=== PATIENT | female | born 1985 | race American Indian/Alaskan Native ===

== ENCOUNTER 2016-10-30 07:23 | Emergency (ER) | payer MEDICAID ==
[2016-10-30 07:36] VITALS: BP 130/97
[2016-10-30 08:13] LABS: Bilirubin,Urine NEG (Negative); Blood,Urine LG (Negative); Ketones,Urine 80 mg/dL (Negative); Leukocyte Esterase,Urine NEG (Negative); Mucus,Urine FEW /HPF; Nitrite,Urine NEG (Negative)
[2016-10-30 08:18] LABS: Basophils % (Auto) 0.9 % (0.0-1.8); Eosinophils % (Auto) 0.2 % (0.0-4.3); Hematocrit 38.1 % (30.3-42.9); Hemoglobin 12.5 gm/dl (10.1-14.3); Mean Corpuscular HGB Conc 33 % (30-34); Mean Corpuscular Hemoglobin 30 pg (28-32); Mean Corpuscular Volume 92 fl (79-97); Platelet Count 290 K/mm3 (140-440); Red Blood Count 4.16 M/mm3 (3.65-5.03); Red Cell Distribution Width 14.3 % (13.2-15.2); White Blood Count 10.8 K/mm3 (4.5-11.0)
[2016-10-30 08:43] LABS: Alanine Aminotransferase 10 units/L (7-56); Albumin 4.7 g/dL (3.9-5); Albumin/Globulin Ratio 1.6 %; Alkaline Phosphatase 73 units/L (35-129); Anion Gap 23 mmol/L; BUN/Creatinine Ratio 15.71; Bilirubin,Total 0.7 mg/dL (0.1-1.2); Blood Urea Nitrogen 11 mg/dL (7-17); Calcium 9.6 mg/dL (8.4-10.2); Carbon Dioxide 18 mmol/L (22-30); Chloride 99.1 mmol/L (98-107); Creatine Kinase 746 units/L (30-135); Glucose 100 mg/dL (65-100); Potassium 4.1 mmol/L (3.6-5.0); Sodium 136 mmol/L (137-145); Total Protein 7.7 g/dL (6.3-8.2)
[2016-10-30 08:47] LABS: Bilirubin,Direct < 0.2 mg/dL (0-0.2)
== END 2016-10-30 08:15 | disposition left against medical advice (07) ==
LOC: ED 07:23
DX: R06.00 Dyspnea, unspecified (principal); Z53.21 Procedure and treatment not carried out due to patient leaving prior to being seen by health care provider
CPT/HCPCS: 36415; 80048; 80074; 81001; 82550; 84484; 84703; 85025; 93005; 93010

== ENCOUNTER 2017-05-16 04:23 | Emergency (ER) | payer MEDICAID ==
[2017-05-16] MEDS ORDERED: ZOFRAN ONE (04:47)
[2017-05-16] MEDS ORDERED: NACL 0.9% 1000 ML 1,000 ML ONE (04:48)
[2017-05-16] MEDS ORDERED: TORADOL ONE (04:48)
[2017-05-16] MEDS ORDERED: ZOFRAN IV ONE (05:12)
[2017-05-16] MEDS ORDERED: NACL 0.9% 1000 ML 1,000 ML IV ONE (05:12)
[2017-05-16] MEDS ORDERED: TORADOL IV ONE (05:14)
[2017-05-16 06:47] LABS: Hematocrit 37.9 % (30.3-42.9); Hemoglobin 12.4 gm/dl (10.1-14.3); Mean Corpuscular HGB Conc 33 % (30-34); Mean Corpuscular Hemoglobin 30 pg (28-32); Mean Corpuscular Volume 92 fl (79-97); Platelet Count 295 K/mm3 (140-440); Red Cell Distribution Width 14.3 % (13.2-15.2); White Blood Count 12.5 K/mm3 (4.5-11.0)
[2017-05-16 07:02] LABS: Albumin 4.1 g/dL (3.9-5); Albumin/Globulin Ratio 1.4 %; Alkaline Phosphatase 63 units/L (35-129); BUN/Creatinine Ratio 32; Blood Urea Nitrogen 19 mg/dL (7-17); Carbon Dioxide 21 mmol/L (22-30); Chloride 105.6 mmol/L (98-107); Glucose 74 mg/dL (65-100); Lipase 25 units/L (13-60); Sodium 143 mmol/L (137-145); Total Protein 7.1 g/dL (6.3-8.2)
[2017-05-16] MEDS ORDERED: NORCO 10/325 PO ONE (07:02)
[2017-05-16 07:07] LABS: Bacteria,Urine 1+ /HPF (Negative); Bilirubin,Urine NEG (Negative); Blood,Urine LG (Negative); Ketones,Urine NEG (Negative); Leukocyte Esterase,Urine SM (Negative); Mucus,Urine 3+ /HPF; Nitrite,Urine NEG (Negative)
[2017-05-16 07:39] LABS: Basophils % (Manual) 0 % (0.0-1.8); Blastocytes % (Manual) 0 %; Diff Status Complete; Eosinophils % (Manual) 0 % (0.0-4.3); RBC Morphology Normal
[2017-05-16 07:54] LABS: Anion Gap 21 mmol/L
[2017-05-16 07:55] LABS: Alanine Aminotransferase 8 units/L (7-56); Potassium 4.3 mmol/L (3.6-5.0)
[2017-05-16 08:11] VITALS: BP 120/71
--- NOTE | 2017-05-16 08:27 | Emergency Department Report ---
ED General Adult HPI - General Chief complaint: Urogenital-Female Stated complaint: FLANK PAIN Time Seen by Provider: 05/16/17 07:01 Source: patient Mode of arrival: Ambulatory Limitations: No Limitations - History of Present Illness Initial comments: Patient is a 32-year-old female past medical history of renal colic who presents with left flank pain. Patient states that left flank pain that has been going on for the last couple hours. Patient is nauseated and vomiting. States that the pain is an 8 out of 10 and radiates down her groin is a crampy type of pain. Patient has no blood or bile in her vomit. Nothing makes the pain better or worse. Patient denies having any dysuria or having any vaginal bleeding. Severity scale (0 -10): 0 - Related Data Previous Rx's Medication Instructions Recorded Last Taken Type HYDROcodone/APAP 7.5-325 [[place] 1 each PO Q6HR PRN #13 tablet 05/16/17 Unknown Rx 7.5/325] HYDROcodone/APAP 7.5-325 [[place] 1 each PO Q6HR PRN #13 tablet 05/16/17 Unknown Rx 7.5/325] Naproxen 250 mg PO BID #20 tablet 05/16/17 Unknown Rx Nitrofurantoin Monohyd/M-Cryst 100 mg PO BID #14 capsule 05/16/17 Unknown Rx [Macrobid 100 mg Capsule] Ondansetron [Zofran TAB] 4 mg PO Q8HR PRN #13 tablet 05/16/17 Unknown Rx Allergies Allergy/AdvReac Type Severity Reaction Status Date / Time No Known Allergies Allergy Verified 10/30/16 07:30 ED Review of Systems ROS: Stated complaint: FLANK PAIN Other details as noted in HPI Constitutional: denies: chills, fever Eyes: denies: eye pain, eye discharge, vision change ENT: denies: ear pain, throat pain Respiratory: denies: cough, shortness of breath, wheezing Cardiovascular: denies: chest pain, palpitations Endocrine: no symptoms reported Gastrointestinal: as per HPI, nausea, other (flank pain ). denies: abdominal pain, diarrhea Genitourinary: denies: urgency, dysuria, discharge Musculoskeletal: denies: back pain, joint swelling, arthralgia Skin: denies: rash, lesions Neurological: denies: headache, weakness, paresthesias Psychiatric: denies: anxiety, depression Hematological/Lymphatic: denies: easy bleeding, easy bruising ED Past Medical Hx - Past Medical History Previous Medical History?: Yes Hx Hypertension: No Hx Heart Attack/AMI: No Hx Congestive Heart Failure: No Hx Diabetes: No Hx Deep Vein Thrombosis: No Hx Renal Disease: Yes (kidney stones) Hx Sickle Cell Disease: No Hx Seizures: No Hx Kidney Stones: Yes Hx Asthma: No Hx COPD: No Hx HIV: No - Surgical History Past Surgical History?: Yes Additional Surgical History: TUBAL LIGATION. LEFT KIDNEY STENT - Social History Smoking Status: Never Smoker Substance Use Type: None - Medications Home Medications: Home Medications Medication Instructions Recorded Confirmed Last Taken Type HYDROcodone/APAP 7.5-325 [[place] 1 each PO Q6HR PRN #13 tablet 05/16/17 Unknown Rx 7.5/325] HYDROcodone/APAP 7.5-325 [[place] 1 each PO Q6HR PRN #13 tablet 05/16/17 Unknown Rx 7.5/325] Naproxen 250 mg PO BID #20 tablet 05/16/17 Unknown Rx Nitrofurantoin Monohyd/M-Cryst 100 mg PO BID #14 capsule 05/16/17 Unknown Rx [Macrobid 100 mg Capsule] Ondansetron [Zofran TAB] 4 mg PO Q8HR PRN #13 tablet 05/16/17 Unknown Rx ED Physical Exam - General Limitations: No Limitations General appearance: alert, in no apparent distress - Head Head exam: Present: atraumatic, normocephalic - Eye Eye exam: Present: normal appearance - ENT ENT exam: Present: mucous membranes moist - Neck Neck exam: Present: normal inspection - Respiratory Respiratory exam: Present: normal lung sounds bilaterally. Absent: respiratory distress - Cardiovascular Cardiovascular Exam: Present: regular rate, normal rhythm. Absent: systolic murmur, diastolic murmur, rubs, gallop - GI/Abdominal GI/Abdominal exam: Present: soft, normal bowel sounds - Extremities Exam Extremities exam: Present: normal inspection - Back Exam Back exam: Present: CVA tenderness (L) - Neurological Exam Neurological exam: Present: alert, oriented X3 - Psychiatric Psychiatric exam: Present: normal affect, normal mood - Skin Skin exam: Present: warm, dry, intact, normal color. Absent: rash ED Course Vital Signs 05/16/17 05/16/17 05/16/17 04:28 04:29 04:37 Temperature 97.8 F 97.8 F 98.0 F Pulse Rate 88 88 85 Respiratory 18 20 18 Rate Blood Pressure 112/80 112/80 142/87 Blood Pressure [Left] O2 Sat by Pulse 100 99 96 Oximetry 05/16/17 05/16/17 05/16/17 05:00 05:11 05:15 Temperature 97.8 F Pulse Rate 90 Respiratory 20 20 20 Rate Blood Pressure Blood Pressure 126/84 [Left] O2 Sat by Pulse 98 98 Oximetry 05/16/17 05/16/17 05/16/17 05:45 07:22 08:10 Temperature 98.2 F Pulse Rate 74 Respiratory 20 20 18 Rate Blood Pressure Blood Pressure 120/71 [Left] O2 Sat by Pulse 98 Oximetry ED Medical Decision Making - Lab Data Result diagrams: 05/16/17 06:36 05/16/17 06:36 Lab Results 05/16/17 05/16/17 05/16/17 Range/Units 06:36 06:36 06:36 WBC 12.5 H (4.5-11.0) K/mm3 RBC 4.10 (3.65-5.03) M/mm3 Hgb 12.4 (10.1-14.3) gm/dl Hct 37.9 (30.3-42.9) % MCV 92 (79-97) fl MCH 30 (28-32) pg MCHC 33 (30-34) % RDW 14.3 (13.2-15.2) % Plt Count 295 (140-440) K/mm3 Add Manual Diff Complete Total Counted 100 Seg Neutrophils % [employer] Seg Neuts % (Manual) 95.0 H (40.0-70.0) % Band Neutrophils % 0 % Lymphocytes % (Manual) 4.0 L (13.4-35.0) % Reactive Lymphs % (Man) 0 % Monocytes % (Manual) 1.0 (0.0-7.3) % Eosinophils % (Manual) 0 (0.0-4.3) % Basophils % (Manual) 0 (0.0-1.8) % Metamyelocytes % 0 % Myelocytes % 0 % Promyelocytes % 0 % Blast Cells % 0 % Nucleated RBC % Not Reportable Seg Neutrophils # Man 11.9 H (1.8-7.7) K/mm3 Band Neutrophils # 0.0 K/mm3 Lymphocytes # (Manual) 0.5 L (1.2-5.4) K/mm3 Abs React Lymphs (Man) 0.0 K/mm3 Monocytes # (Manual) 0.1 (0.0-0.8) K/mm3 Eosinophils # (Manual) 0.0 (0.0-0.4) K/mm3 Basophils # (Manual) 0.0 (0.0-0.1) K/mm3 Metamyelocytes # 0.0 K/mm3 Myelocytes # 0.0 K/mm3 Promyelocytes # 0.0 K/mm3 Blast Cells # 0.0 K/mm3 WBC Morphology Not Reportable Hypersegmented Neuts Not Reportable Hyposegmented Neuts Not Reportable Hypogranular Neuts Not Reportable Smudge Cells Not Reportable Toxic Granulation Not Reportable Toxic Vacuolation Not Reportable Dohle Bodies Not Reportable Pelger-Huet Anomaly Not Reportable Emmy Rods Not Reportable Platelet Estimate Appears normal Clumped Platelets Not Reportable Plt Clumps, EDTA Not Reportable Large Platelets Not Reportable Giant Platelets Not Reportable Platelet Satelliting Not Reportable Plt Morphology Comment Not Reportable RBC Morphology Normal Dimorphic RBCs Not Reportable Polychromasia Not Reportable Hypochromasia Not Reportable Poikilocytosis Not Reportable Anisocytosis Not Reportable Microcytosis Not Reportable Macrocytosis Not Reportable Spherocytes Not Reportable Pappenheimer Bodies Not Reportable Sickle Cells Not Reportable Target Cells Not Reportable Tear Drop Cells Not Reportable Ovalocytes Not Reportable Helmet Cells Not Reportable [place] Bodies Not Reportable [place] Rings Not Reportable Tye Cells Not Reportable Bite Cells Not Reportable Crenated Cell Not Reportable Elliptocytes Not Reportable Acanthocytes (Spur) Not Reportable Rouleaux Not Reportable Hemoglobin C Crystals Not Reportable Schistocytes Not Reportable Malaria parasites Not Reportable Se Bodies Not Reportable Hem Pathologist Commnt No Sodium 143 (137-145) mmol/L Potassium 4.3 (3.6-5.0) mmol/L Chloride 105.6 (98-107) mmol/L Carbon Dioxide 21 L (22-30) mmol/L Anion Gap 21 mmol/L BUN 19 H (7-17) mg/dL Creatinine 0.6 L (0.7-1.2) mg/dL Estimated GFR > 60 ml/min BUN/Creatinine Ratio 32 % Glucose 74 (65-100) mg/dL Calcium 9.0 (8.4-10.2) mg/dL Total Bilirubin 0.40 (0.1-1.2) mg/dL AST 17 (5-40) units/L ALT 8 (7-56) units/L Alkaline Phosphatase 63 (35-129) units/L Total Protein 7.1 (6.3-8.2) g/dL Albumin 4.1 (3.9-5) g/dL Albumin/Globulin Ratio 1.4 % Lipase 25 (13-60) units/L HCG, Qual Negative (Negative) Urine Color (Yellow) Urine Turbidity (Clear) Urine pH (5.0-7.0) Ur Specific [place] (1.003-1.030) Urine Protein (Negative) mg/dL Urine Glucose (UA) (Negative) mg/dL Urine Ketones (Negative) mg/dL Urine Blood (Negative) Urine Nitrite (Negative) Urine Bilirubin (Negative) Urine Urobilinogen (<2.0) mg/dL Ur Leukocyte Esterase (Negative) Urine WBC (Auto) (0.0-6.0) /HPF Urine RBC (Auto) (0.0-6.0) /HPF U Epithel Cells (Auto) (0-13.0) /HPF Urine Bacteria (Auto) (Negative) /HPF Calcium Oxalate Crystal Urine Mucus /HPF 05/16/17 Range/Units 06:51 WBC (4.5-11.0) K/mm3 RBC (3.65-5.03) M/mm3 Hgb (10.1-14.3) gm/dl Hct (30.3-42.9) % MCV (79-97) fl MCH (28-32) pg MCHC (30-34) % RDW (13.2-15.2) % Plt Count (140-440) K/mm3 Add Manual Diff Total Counted Seg Neutrophils % Seg Neuts % (Manual) (40.0-70.0) % Band Neutrophils % % Lymphocytes % (Manual) (13.4-35.0) % Reactive Lymphs % (Man) % Monocytes % (Manual) (0.0-7.3) % Eosinophils % (Manual) (0.0-4.3) % Basophils % (Manual) (0.0-1.8) % Metamyelocytes % % Myelocytes % % Promyelocytes % % Blast Cells % % Nucleated RBC % Seg Neutrophils # Man (1.8-7.7) K/mm3 Band Neutrophils # K/mm3 Lymphocytes # (Manual) (1.2-5.4) K/mm3 Abs React Lymphs (Man) K/mm3 Monocytes # (Manual) (0.0-0.8) K/mm3 Eosinophils # (Manual) (0.0-0.4) K/mm3 Basophils # (Manual) (0.0-0.1) K/mm3 Metamyelocytes # K/mm3 Myelocytes # K/mm3 Promyelocytes # K/mm3 Blast Cells # K/mm3 WBC Morphology Hypersegmented Neuts Hyposegmented Neuts Hypogranular Neuts Smudge Cells Toxic Granulation Toxic Vacuolation Dohle Bodies Pelger-Huet Anomaly Emmy Rods Platelet Estimate Clumped Platelets Plt Clumps, EDTA Large Platelets Giant Platelets Platelet Satelliting Plt Morphology Comment RBC Morphology Dimorphic RBCs Polychromasia Hypochromasia Poikilocytosis Anisocytosis Microcytosis Macrocytosis Spherocytes Pappenheimer Bodies Sickle Cells Target Cells Tear Drop Cells Ovalocytes Helmet Cells [place] Bodies [place] Rings Tye Cells Bite Cells Crenated Cell Elliptocytes Acanthocytes (Spur) Rouleaux Hemoglobin C Crystals Schistocytes Malaria parasites Se Bodies Hem Pathologist Commnt Sodium (137-145) mmol/L Potassium (3.6-5.0) mmol/L Chloride (98-107) mmol/L Carbon Dioxide (22-30) mmol/L Anion Gap mmol/L BUN (7-17) mg/dL Creatinine (0.7-1.2) mg/dL Estimated GFR ml/min BUN/Creatinine Ratio % Glucose (65-100) mg/dL Calcium (8.4-10.2) mg/dL Total Bilirubin (0.1-1.2) mg/dL AST (5-40) units/L ALT (7-56) units/L Alkaline Phosphatase (35-129) units/L Total Protein (6.3-8.2) g/dL Albumin (3.9-5) g/dL Albumin/Globulin Ratio % Lipase (13-60) units/L HCG, Qual (Negative) Urine Color Yellow (Yellow) Urine Turbidity Clear (Clear) Urine pH 5.0 (5.0-7.0) Ur Specific [place] 1.021 (1.003-1.030) Urine Protein 100 mg/dl (Negative) mg/dL Urine Glucose (UA) Neg (Negative) mg/dL Urine Ketones Neg (Negative) mg/dL Urine Blood Lg (Negative) Urine Nitrite Neg (Negative) Urine Bilirubin Neg (Negative) Urine Urobilinogen 2.0 (<2.0) mg/dL Ur Leukocyte Esterase Sm (Negative) Urine WBC (Auto) 19.0 H (0.0-6.0) /HPF Urine RBC (Auto) 99.0 (0.0-6.0) /HPF U Epithel Cells (Auto) 1.0 (0-13.0) /HPF Urine Bacteria (Auto) 1+ (Negative) /HPF Calcium Oxalate Crystal 1+ Urine Mucus 3+ /HPF - Radiology Data Radiology results: report reviewed, image reviewed CT scan abdomen without contrast: Shows 7 x 6 x 6 mm stone mild obstructing. Similar findings in 2015 - Medical Decision Making Chief medical diagnosis: Nephrolithiasis Differential medical diagnosis: Cystitis, pyelonephritis CBC, CMP, urinalysis, IV pain medication, IV antiemetics, IV fluids, CT scan of abdomen Patient has nephrolithiasis 7 x 6 x 6 mm stone. Patient will go home she is able tolerate by mouth and does not need IV pain medication control her pain. All have patient follow up with urologist as an outpatient. Also patient was Zofran, naproxen, hydrocodone and Macrobid for her UTI. Discussed plan with patient she agrees with plan. Critical care attestation.: If time is entered above; I have spent that time in minutes in the direct care of this critically ill patient, excluding procedure time. ED Disposition Clinical Impression: Left flank pain, Kidney stone UTI (urinary tract infection) Qualifiers: Urinary tract infection type: acute cystitis Hematuria presence: with hematuria Qualified Code(s): N30.01 - Acute cystitis with hematuria Disposition: TO HOME OR SELFCARE Is pt being admited?: No Does the pt Need Aspirin: No Condition: Stable Instructions: Kidney Stones (ED), Renal Colic (ED) Prescriptions: HYDROcodone/APAP 7.5-325 [[place] 7.5/325] 1 each PO Q6HR PRN #13 tablet PRN Reason: Pain HYDROcodone/APAP 7.5-325 [[place] 7.5/325] 1 each PO Q6HR PRN #13 tablet PRN Reason: Pain Naproxen 250 mg PO BID #20 tablet Nitrofurantoin Monohyd/M-Cryst [Macrobid 100 mg Capsule] 100 mg PO BID #14 capsule Ondansetron [Zofran TAB] 4 mg PO Q8HR PRN #13 tablet PRN Reason: Nausea Referrals: JENNIFER HOOD MD [Staff Physician] - 3-5 Days
--- NOTE | 2017-05-16 09:05 | Cat Scan Report ---
CT ABDOMEN WITHOUT CONTRAST History: Left flank pain, history of kidney stones. Technique: Helical CT with sagittal and coronal reformatted images. Findings: A 6 x 6 x 7 mm calculus is identified in the proximal left ureter. There is moderate upstream left hydronephrosis. No additional ureteral stones. There are multiple bilateral renal calyceal stones as well. No evidence for renal cystic disease, mass or perinephric fluid. The bladder is empty and unremarkable. The unenhanced CT appearance of the remaining abdominal and pelvic visceral are within normal limits. Heart size is normal. The lung bases are clear. The bony structures are intact. Impression: 6 x 6 x 7 mm calculus in the proximal left ureter, moderately obstructing. Please note that this finding was also demonstrated on the CT abdomen pelvis with contrast dated 03/10/15. Bilateral nonobstructing renal stones.
== END 2017-05-16 09:45 | disposition home or self-care (01) ==
LOC: ED 04:23
DX: N30.01 Acute cystitis with hematuria (principal); R10.9 Unspecified abdominal pain; N20.0 Calculus of kidney
CPT/HCPCS: 36415; 74150; 80053; 81001; 83690; 84703; 85007; 85025; 96361; 96374; 96375; 99284; J1885; J2405; J7030

== ENCOUNTER 2018-01-15 12:43 | Emergency (ER) | payer SELFPAY ==
[2018-01-15 12:49] VITALS: BP 123/83
[2018-01-15] MEDS ORDERED: XYLOCAINE 1% MPF 5 mL INFILTRATI ONE (13:35)
[2018-01-15] MEDS ORDERED: BOOSTRIX IM ONE (13:35)
--- NOTE | 2018-01-15 13:36 | Emergency Department Report ---
ED Laceration HPI - HPI Chief Complaint: Wound/Laceration Stated Complaint: HOLE IN LIP/MOUTH INJURY Time Seen by Provider: 01/15/18 13:34 Occurred When: Today Severity: severe Tetanus Status: Not up to Date Laceration Symptoms: Yes Pain, No Foreign Body Sensation, No Numbness, No Weakness Other History: Patient suffered a laceration to the inside of the bottom lip after she fell last night ED Review of Systems ROS: Stated complaint: HOLE IN LIP/MOUTH INJURY Other details as noted in HPI Constitutional: denies: chills, fever Eyes: denies: eye pain, eye discharge, vision change ENT: other (lip laceration). denies: ear pain, throat pain, dental pain, hearing loss, epistaxis Respiratory: denies: cough, orthopnea, shortness of breath, SOB with exertion, SOB at rest, stridor, wheezing Cardiovascular: denies: chest pain, palpitations, dyspnea on exertion, orthopnea , edema, syncope, paroxysmal nocturnal dyspnea Psychiatric: denies: anxiety, depression Hematological/Lymphatic: as per HPI ED Past Medical Hx - Past Medical History Hx Hypertension: No Hx Heart Attack/AMI: No Hx Congestive Heart Failure: No Hx Diabetes: No Hx Deep Vein Thrombosis: No Hx Renal Disease: Yes (kidney stones) Hx Sickle Cell Disease: No Hx Seizures: No Hx Kidney Stones: Yes Hx Asthma: No Hx COPD: No Hx HIV: No - Surgical History Additional Surgical History: TUBAL LIGATION. LEFT KIDNEY STENT - Social History Smoking Status: Current Every Day Smoker Substance Use Type: None - Medications Home Medications: Home Medications Medication Instructions Recorded Confirmed Last Taken Type HYDROcodone/APAP 7.5-325 [[place] 1 each PO Q6HR PRN #13 tablet 05/16/17 Unknown Rx 7.5/325] HYDROcodone/APAP 7.5-325 [[place] 1 each PO Q6HR PRN #13 tablet 05/16/17 Unknown Rx 7.5/325] Naproxen 250 mg PO BID #20 tablet 05/16/17 Unknown Rx Nitrofurantoin Monohyd/M-Cryst 100 mg PO BID #14 capsule 05/16/17 Unknown Rx [Macrobid 100 mg Capsule] Ondansetron [Zofran TAB] 4 mg PO Q8HR PRN #13 tablet 05/16/17 Unknown Rx Ibuprofen 800 mg PO TID #30 tablet 01/15/18 Unknown Rx Laceration Physical Exam - Exam General: Vital signs noted. No distress. Alert and acting appropriately. Wound Length (cm): 1 (1.5) Laceration Location: Other (inside lower lip) Laceration Exam: Yes Normal Distal CMS, No Foreign Body, No Exposed Tendon, Vessel, or Nerve, No Tendon Injury ED Course Vital Signs 01/15/18 12:47 Temperature 98.6 F Pulse Rate 110 H Respiratory 16 Rate Blood Pressure 123/83 O2 Sat by Pulse 99 Oximetry - Reevaluation(s) Reevaluation #1: 01/15/18 14:30 tetanus vaccine and laceration repair kit to the bedside - Laceration /Wound Repair Lower Wound Location: mouth (inside of lower lip) Wound Length (cm): 1 (1.5 cm) Wound's Depth, Shape: into muscle Wound Explored: clean Betadine Prep?: No Anesthesia: 1% Lidocaine Volume Anesthetic (ccs): 3 Wound Debrided: none Wound Repaired With: sutures Suture Size/Type: 5:0 (gut) Number of Sutures: 3 Layer Closure?: Yes Sterile Dressing Applied?: No Progress: Patient tolerated procedure well ED Medical Decision Making - Lab Data Temp Pulse Resp BP Pulse Ox 98.6 F 110 H 16 123/83 99 01/15/18 12:47 01/15/18 12:47 01/15/18 12:47 01/15/18 12:47 01/15/18 12:47 - Medical Decision Making During the course of ED, tetanus vaccine and lip laceration repaired. She was sent home with prescription for Ibuprofen, instructions to avoid acidic, salty or spicy foods until sutures dissolved, she verbalized understanding - Differential Diagnosis Lip Laceration, Fall Critical care attestation.: If time is entered above; I have spent that time in minutes in the direct care of this critically ill patient, excluding procedure time. ED Disposition Clinical Impression: Laceration of lip Qualifiers: Encounter type: initial encounter Qualified Code(s): S01.511A - Laceration without foreign body of lip, initial encounter Disposition: -01 TO HOME OR SELFCARE Is pt being admited?: No Does the pt Need Aspirin: No Condition: Stable Instructions: Absorbable Suture Care (ED) Additional Instructions: Take medication as directed. No salty, acidic or spicy foods until laceration heals. Prescriptions: Ibuprofen 800 mg PO TID #30 tablet Referrals: PRIMARY CARE, [Primary Care Provider] - 3-5 Days Time of Disposition: 14:17
--- NOTE | 2018-01-15 14:05 | Emergency Department Report ---
Blank Doc - Documentation Documentation: I assisted my colleague by performing a mental nerve block. After explaining the risks alternatives and benefits, Ms. Gibson gave verbal consent for mental nerve block. She understands the small risk of permanent nerve damage. I used a 26-gauge needle and 3 mL syringe to administered 3 mL of 1% lidocaine without epinephrine just adjacent to the mental nerve foramen. Patient achieved adequate anesthesia. I also aspirated before injecting lidocaine to avoid vessel infiltration
== END 2018-01-15 14:22 | disposition home or self-care (01) ==
LOC: ED 12:43
DX: S01.511A Laceration without foreign body of lip, initial encounter (principal); F17.200 Nicotine dependence, unspecified, uncomplicated; Z98.51 Tubal ligation status; W19.XXXA Unspecified fall, initial encounter; Y93.89 Activity, other specified; Y99.8 Other external cause status; Y92.89 Other specified places as the place of occurrence of the external cause
CPT/HCPCS: 90471; 90715; 99282

== ENCOUNTER 2019-04-10 10:46 | Emergency (ER) | payer SELFPAY ==
[2019-04-10] MEDS ORDERED: XYLOCAINE 1% MPF 5 mL INFILTRATI ONE (11:52)
--- NOTE | 2019-04-10 12:44 | Emergency Department Report ---
ED General Adult HPI - General Chief complaint: Skin/Abscess/Foreign Body Stated complaint: PAINFUL KNOT (BUTTOCKS) Time Seen by Provider: 04/10/19 11:28 Source: patient Mode of arrival: Ambulatory Limitations: No Limitations - History of Present Illness Initial comments: Pt is a 34 yo female who presents to the ED with c/o a "knot" to the gluteal region that began two days ago. She states it "felt like a hair bump" but has increased in size and soreness. She states that also for the last couple of days she has had white vaginal discharge with an odor. she states she has mild suprapubic cramping. she denies any fever, N/V/D, urinary sx. she states her only PMHx is nephrolithiasis. she denies any allergies to meds. [facility] march 25 - Related Data Previous Rx's Medication Instructions Recorded Last Taken Type HYDROcodone/APAP 7.5-325 [[place] 1 each PO Q6HR PRN #13 tablet 05/16/17 Unknown Rx 7.5/325] HYDROcodone/APAP 7.5-325 [[place] 1 each PO Q6HR PRN #13 tablet 05/16/17 Unknown Rx 7.5/325] Naproxen 250 mg PO BID #20 tablet 05/16/17 Unknown Rx Nitrofurantoin Monohyd/M-Cryst 100 mg PO BID #14 capsule 05/16/17 Unknown Rx [Macrobid 100 mg Capsule] Ondansetron [Zofran TAB] 4 mg PO Q8HR PRN #13 tablet 05/16/17 Unknown Rx Ibuprofen [Ibuprofen 800] 800 mg PO TID #30 tablet 01/15/18 Unknown Rx Fluconazole [Diflucan TAB] 150 mg PO ONCE #1 tablet 04/10/19 Unknown Rx Sulfamethoxazole/Trimethoprim 1 each PO BID 10 Days #20 tablet 04/10/19 Unknown Rx [Bactrim DS TAB] metroNIDAZOLE [Flagyl] 500 mg PO BID 7 Days #14 tab 04/10/19 Unknown Rx Allergies Allergy/AdvReac Type Severity Reaction Status Date / Time No Known Allergies Allergy Verified 01/15/18 12:47 ED Review of Systems ROS: Stated complaint: PAINFUL KNOT (BUTTOCKS) Other details as noted in HPI Comment: All other systems reviewed and negative ED Past Medical Hx - Past Medical History Previous Medical History?: Yes Hx Hypertension: No Hx Heart Attack/AMI: No Hx Congestive Heart Failure: No Hx Diabetes: No Hx Deep Vein Thrombosis: No Hx Renal Disease: Yes (kidney stones) Hx Sickle Cell Disease: No Hx Seizures: No Hx Kidney Stones: Yes Hx Asthma: No Hx COPD: No Hx HIV: No - Surgical History Past Surgical History?: Yes Additional Surgical History: TUBAL LIGATION. LEFT KIDNEY STENT - Social History Smoking Status: Current Every Day Smoker Substance Use Type: Alcohol - Medications Home Medications: Home Medications Medication Instructions Recorded Confirmed Last Taken Type HYDROcodone/APAP 7.5-325 [[place] 1 each PO Q6HR PRN #13 tablet 05/16/17 Unknown Rx 7.5/325] HYDROcodone/APAP 7.5-325 [[place] 1 each PO Q6HR PRN #13 tablet 05/16/17 Unknown Rx 7.5/325] Naproxen 250 mg PO BID #20 tablet 05/16/17 Unknown Rx Nitrofurantoin Monohyd/M-Cryst 100 mg PO BID #14 capsule 05/16/17 Unknown Rx [Macrobid 100 mg Capsule] Ondansetron [Zofran TAB] 4 mg PO Q8HR PRN #13 tablet 05/16/17 Unknown Rx Ibuprofen [Ibuprofen 800] 800 mg PO TID #30 tablet 01/15/18 Unknown Rx Fluconazole [Diflucan TAB] 150 mg PO ONCE #1 tablet 04/10/19 Unknown Rx Sulfamethoxazole/Trimethoprim 1 each PO BID 10 Days #20 tablet 04/10/19 Unknown Rx [Bactrim DS TAB] metroNIDAZOLE [Flagyl] 500 mg PO BID 7 Days #14 tab 04/10/19 Unknown Rx ED Physical Exam - General Limitations: No Limitations General appearance: alert, in no apparent distress - Head Head exam: Present: atraumatic, normocephalic - Eye Eye exam: Present: normal appearance - ENT ENT exam: Present: mucous membranes moist - Respiratory Respiratory exam: Present: normal lung sounds bilaterally. Absent: respiratory distress, wheezes, rales, rhonchi, stridor, chest wall tenderness, accessory muscle use, decreased breath sounds, prolonged expiratory - Cardiovascular Cardiovascular Exam: Present: regular rate, normal rhythm, normal heart sounds. Absent: systolic murmur, diastolic murmur, rubs, gallop - GI/Abdominal GI/Abdominal exam: Present: soft, normal bowel sounds. Absent: distended, tenderness, guarding, rebound, rigid - Rectal Rectal exam: Present: other (5 cm area of indurated skin to the left gluteal region, 2 cm area of central fluctuance that comes to a head, no active drainage) - External exam: Present: normal external exam. Absent: erythema, swelling, lesions, lacerations, ecchymosis, bleeding Speculum exam: Present: vaginal discharge (copious white discharge), cervical discharge (white discharge), other (php consultant: LELA ernst). Absent: erythema, vaginal bleeding, foreign body, tissue, laceration Bi-manual exam: Present: normal bi-manual exam. Absent: cervical motion tend ernes, adnexal tenderness, adnexal mass ED Course Vital Signs 04/10/19 04/10/19 10:55 13:17 Temperature 99.7 F H Pulse Rate 119 H 108 H Respiratory 20 16 Rate Blood Pressure 134/84 Blood Pressure 140/90 [Left] O2 Sat by Pulse 99 99 Oximetry - I & D Left Buttocks Type of Procedure: Simple Site: left gluteal region Blade Size: 11 I & D Procedure: betadine prep, sterile drapes applied, sterile dressing applied Progress: area prepped with betadine, sterile drapes applied, 3 cc of 1% lidocaine without epi used for anesthetic, area again cleaned with betadine, 2 cm incision made to the left gluteus with a 11 blade, moderate amount of purulent material expressed, irrigated with 50 cc of saline, iodoform gauze placed, sterile dressing placed, pt tolerated well, no complications, bleeding controlled, php consultant: LELA Ernst ED Medical Decision Making - Medical Decision Making Pt is a 34 yo female who presents to the ED with c/o a "knot" to the gluteal region that began two days ago. She states it "felt like a hair bump" but has increased in size and soreness. She states that also for the last couple of days she has had white vaginal discharge with an odor. she states she has mild suprapubic cramping. she denies any fever, N/V/D, urinary sx. she states her only PMHx is nephrolithiasis. she denies any allergies to meds. [facility] march 25. on exam: 5 cm area of indurated skin to the left gluteal region, 2 cm area of central fluctuance that comes to a head, no active drainage, white vaginal/cervical discharge, no CMT, no adnexal masses or tenderness, php consultant: LELA ernst. wet prep shows evidence of BV and yeast. G/C sent. given prescription for fluconazole and metronidazole. I&D performed per procedure note with purulent drainage expressed, packing placed. given prescription for bactrim. advised pt to please take medication as prescribed. packing will need to be removed in 2 days. may return to the emergency room or have this done by a primary care provider. please keep area clean and dry. no hot tub, pool, or soaking in water. follow up with a primary care doctor and [facility] in the next 2- 3 days. check back with medical records in 1 week for results of your test and see if you need further treatment. may be seen at the health department or [facility] for further STD testing. return to the emergency room for any new or worsening symptoms or any worsening signs of infection. Critical care attestation.: If time is entered above; I have spent that time in minutes in the direct care of this critically ill patient, excluding procedure time. ED Disposition Clinical Impression: Abscess, Encounter for incision and drainage procedure, Bacterial vaginosis, Yeast infection, Vaginal discharge Disposition: TO HOME OR SELFCARE Is pt being admited?: No Does the pt Need Aspirin: No Condition: Stable Instructions: Bacterial Vaginosis (ED), Abscess Incision and Drainage (ED), Vulvovaginal Candidiasis (ED) Additional Instructions: please take medication as prescribed. packing will need to be removed in 2 days. may return to the emergency room or have this done by a primary care provider. please keep area clean and dry. no hot tub, pool, or soaking in water. follow up with a primary care doctor and [facility] in the next 2-3 days. check back with medical records in 1 week for results of your test and see if you need further treatment. may be seen at the health department or [facility] for further STD testing. return to the emergency room for any new or worsening symptoms or any worsening signs of infection. Prescriptions: Sulfamethoxazole/Trimethoprim [Bactrim DS TAB] 1 each PO BID 10 Days #20 tablet Fluconazole [Diflucan TAB] 150 mg PO ONCE #1 tablet metroNIDAZOLE [Flagyl] 500 mg PO BID 7 Days #14 tab Referrals: [facility] [Provider Group] - 2-3 Days [facility] [Provider [facility]] - 2-3 Days Forms: STI Treatment and Prevention, Work/School Release Form(ED) Time of Disposition: 12:58 Print Language: BELARUSIAN
[2019-04-10 13:18] VITALS: BP 140/90
== END 2019-04-10 13:17 | disposition home or self-care (01) ==
LOC: ED 10:46
DX: L02.31 Cutaneous abscess of buttock (principal); N76.0 Acute vaginitis; B37.9 Candidiasis, unspecified; F17.200 Nicotine dependence, unspecified, uncomplicated; Z87.442 Personal history of urinary calculi; Z98.51 Tubal ligation status; Z79.899 Other long term (current) drug therapy
CPT/HCPCS: 87210; 87591

== ENCOUNTER 2019-04-14 04:27 | Emergency (ER) | payer SELFPAY ==
[2019-04-14 04:34] VITALS: BP 135/84
[2019-04-14] MEDS ORDERED: NORCO 7.5/325 PO ONE (06:47)
[2019-04-14] MEDS ORDERED: ZOFRAN ODT PO ONE (06:47)
[2019-04-14] MEDS ORDERED: IBUPROFEN PO ONE (06:47)
--- NOTE | 2019-04-14 06:47 | Emergency Department Report ---
- General Chief Complaint: Laceration/Recheck/Suture Stated Complaint: WOUND CHECK Source: patient Mode of arrival: Ambulatory Limitations: No Limitations - History of Present Illness Initial Comments: Patient is a 34-year-old AA female with no past medical history who presents to ED with worsening right gluteal abscess wound due to severe pain for the last 2 days. Patient states that the wound was incised and drained 2 days ago and that she has been taking Bactrim DS for the same. Patient states that the packing that was inserted into the wound fell off. Patient denies fever, chills, nausea, vomiting, dizziness, numbness and tingling all right leg, abdominal pain, chest pain, shortness of breath or back pain. -: Sudden, week(s) (1) Location: other (buttock) 1 - Swollen open wound from a recently drained abscess Place: home Patient Tetanus UTD: Yes Context: other (spontaneous) Associated Symptoms: pain. denies: loss of feeling/numbness, suspect foreign body present, unable to move injured part, weakness followed by dizziness, nausea/vomiting, fever, other Treatments Prior to Arrival: bandage - Related Data Previous Rx's Medication Instructions Recorded Last Taken Type HYDROcodone/APAP 7.5-325 [[place] 1 each PO Q6HR PRN #13 tablet 05/16/17 Unknown Rx 7.5/325] HYDROcodone/APAP 7.5-325 [[place] 1 each PO Q6HR PRN #13 tablet 05/16/17 Unknown Rx 7.5/325] Naproxen 250 mg PO BID #20 tablet 05/16/17 Unknown Rx Nitrofurantoin Monohyd/M-Cryst 100 mg PO BID #14 capsule 05/16/17 Unknown Rx [Macrobid 100 mg Capsule] Ondansetron [Zofran TAB] 4 mg PO Q8HR PRN #13 tablet 05/16/17 Unknown Rx Ibuprofen [Ibuprofen 800] 800 mg PO TID #30 tablet 01/15/18 Unknown Rx Fluconazole [Diflucan TAB] 150 mg PO ONCE #1 tablet 04/10/19 Unknown Rx Sulfamethoxazole/Trimethoprim 1 each PO BID 10 Days #20 tablet 04/10/19 Unknown Rx [Bactrim DS TAB] metroNIDAZOLE [Flagyl] 500 mg PO BID 7 Days #14 tab 04/10/19 Unknown Rx Acetaminophen/Codeine [Tylenol 1 tab PO Q6H PRN #12 tab 04/14/19 Unknown Rx /Codeine # 3 tab] Clindamycin [Clindamycin CAP] 300 mg PO Q8HR #60 capsule 04/14/19 Unknown Rx Ibuprofen [Motrin] 600 mg PO Q8H PRN #24 tablet 04/14/19 Unknown Rx Ondansetron [Zofran Odt] 4 mg PO Q6HR PRN #12 tab.rapdis 04/14/19 Unknown Rx Allergies Allergy/AdvReac Type Severity Reaction Status Date / Time No Known Allergies Allergy Verified 01/15/18 12:47 ED Review of Systems ROS: Stated complaint: WOUND CHECK Other details as noted in HPI Constitutional: denies: chills, fever Eyes: denies: eye pain, eye discharge, vision change ENT: denies: ear pain, throat pain Respiratory: denies: cough, shortness of breath, wheezing Cardiovascular: denies: chest pain, palpitations Endocrine: no symptoms reported Gastrointestinal: denies: abdominal pain, nausea, diarrhea Genitourinary: denies: urgency, dysuria, discharge Musculoskeletal: denies: back pain, joint swelling, arthralgia Skin: rash (swollen painful open abscess wound on right gluteus). denies: lesions Neurological: denies: headache, weakness, paresthesias Psychiatric: denies: anxiety, depression Hematological/Lymphatic: denies: easy bleeding, easy bruising ED Past Medical Hx - Past Medical History Previous Medical History?: Yes Hx Hypertension: No Hx Heart Attack/AMI: No Hx Congestive Heart Failure: No Hx Diabetes: No Hx Deep Vein Thrombosis: No Hx Renal Disease: Yes (kidney stones) Hx Sickle Cell Disease: No Hx Seizures: No Hx Kidney Stones: Yes Hx Asthma: No Hx COPD: No Hx HIV: No - Surgical History Past Surgical History?: Yes Additional Surgical History: TUBAL LIGATION. LEFT KIDNEY STENT - Social History Smoking Status: Current Every Day Smoker Substance Use Type: Alcohol - Medications Home Medications: Home Medications Medication Instructions Recorded Confirmed Last Taken Type HYDROcodone/APAP 7.5-325 [[place] 1 each PO Q6HR PRN #13 tablet 05/16/17 Unknown Rx 7.5/325] HYDROcodone/APAP 7.5-325 [[place] 1 each PO Q6HR PRN #13 tablet 05/16/17 Unknown Rx 7.5/325] Naproxen 250 mg PO BID #20 tablet 05/16/17 Unknown Rx Nitrofurantoin Monohyd/M-Cryst 100 mg PO BID #14 capsule 05/16/17 Unknown Rx [Macrobid 100 mg Capsule] Ondansetron [Zofran TAB] 4 mg PO Q8HR PRN #13 tablet 05/16/17 Unknown Rx Ibuprofen [Ibuprofen 800] 800 mg PO TID #30 tablet 01/15/18 Unknown Rx Fluconazole [Diflucan TAB] 150 mg PO ONCE #1 tablet 04/10/19 Unknown Rx Sulfamethoxazole/Trimethoprim 1 each PO BID 10 Days #20 tablet 04/10/19 Unknown Rx [Bactrim DS TAB] metroNIDAZOLE [Flagyl] 500 mg PO BID 7 Days #14 tab 04/10/19 Unknown Rx Acetaminophen/Codeine [Tylenol 1 tab PO Q6H PRN #12 tab 04/14/19 Unknown Rx /Codeine # 3 tab] Clindamycin [Clindamycin CAP] 300 mg PO Q8HR #60 capsule 04/14/19 Unknown Rx Ibuprofen [Motrin] 600 mg PO Q8H PRN #24 tablet 04/14/19 Unknown Rx Ondansetron [Zofran Odt] 4 mg PO Q6HR PRN #12 tab.rapdis 04/14/19 Unknown Rx ED Physical Exam - General Limitations: No Limitations General appearance: alert, in no apparent distress - Head Head exam: Present: atraumatic, normocephalic, normal inspection - Eye Eye exam: Present: normal appearance, PERRL, EOMI Pupils: Present: normal accommodation - ENT ENT exam: Present: normal exam, normal orophraynx, mucous membranes moist, TM's normal bilaterally, normal external ear exam - Neck Neck exam: Present: normal inspection, full ROM. Absent: tenderness - Respiratory Respiratory exam: Present: normal lung sounds bilaterally. Absent: respiratory distress, wheezes, rales, rhonchi, chest wall tenderness, prolonged expiratory - Cardiovascular Cardiovascular Exam: Present: normal rhythm, tachycardia, normal heart sounds. Absent: systolic murmur, diastolic murmur, rubs, gallop - GI/Abdominal GI/Abdominal exam: Present: soft, normal bowel sounds. Absent: tenderness, guarding, rebound, mass - Rectal Rectal exam: Present: tenderness (palpable swollen tender right gluteus abscess wound; no discharge) - Extremities Exam Extremities exam: Present: normal inspection, full ROM, normal capillary refill - Back Exam Back exam: Present: normal inspection, full ROM. Absent: tenderness, CVA tenderness (R), CVA tenderness (L), muscle spasm, paraspinal tenderness - Neurological Exam Neurological exam: Present: alert, oriented X3, CN II-XII intact, normal gait, reflexes normal - Psychiatric Psychiatric exam: Present: normal affect, normal mood - Skin Skin exam: Present: warm, dry, intact, normal color, rash (swollen mildly erythematous tender right gluteus open abscess wound, no discharge) ED Course Vital Signs 04/14/19 04:33 Temperature 98.2 F Pulse Rate 115 H Respiratory 18 Rate Blood Pressure 135/84 O2 Sat by Pulse 100 Oximetry - Reevaluation(s) Reevaluation #1: 04/14/19 06:53 In the ED, the patient is alert and oriented 3 and is not in any distress but appears to be in pain and patient is tachycardic in triage. The wound was c leaned and dressed appropriately and the patient treated for pain in the ED. On reevaluation, patient's pain is well-controlled with medication and tachycardia also improved significantly and resolved. Patient was discharged home on pain medication and an additional antibiotics and advised to follow-up with her primary care physician in 7-10 days for reevaluation or return to the ED immediately if symptoms get worse. ED Medical Decision Making - Medical Decision Making In the ED, the patient is alert and oriented 3 and is not in any distress but appears to be in pain and patient is tachycardic in triage. The wound was cleaned and dressed appropriately and the patient treated for pain in the ED. On reevaluation, patient's pain is well-controlled with medication and tachycardia also improved significantly and resolved. Patient was discharged home on pain medication and an additional antibiotics and advised to follow-up with her primary care physician in 7-10 days for reevaluation or return to the ED immediately if symptoms get wors - Differential Diagnosis cellulitis of right gluteus; cutaneous abscess; Folliculitis Critical care attestation.: If time is entered above; I have spent that time in minutes in the direct care of this critically ill patient, excluding procedure time. ED Disposition Clinical Impression: Wound abscess, Cellulitis and abscess of buttock Disposition: TO HOME OR SELFCARE Is pt being admited?: No Does the pt Need Aspirin: No Condition: Stable Instructions: Cellulitis (ED), Abscess (ED) Additional Instructions: Take medications with food, drink plenty of fluids and follow up with your primary care physician in 7-10 days for reevaluation. Return to the ED immediately if symptoms get worse. Prescriptions: Clindamycin [Clindamycin CAP] 300 mg PO Q8HR #60 capsule Ibuprofen [Motrin] 600 mg PO Q8H PRN #24 tablet PRN Reason: Pain Acetaminophen/Codeine [Tylenol /Codeine # 3 tab] 1 tab PO Q6H PRN #12 tab PRN Reason: Pain , Severe (7-10) Ondansetron [Zofran Odt] 4 mg PO Q6HR PRN #12 tab.rapdis PRN Reason: Nausea Referrals: [facility],MD [Primary Care Provider] - 3-5 Days Time of Disposition: 06:45 Print Language: POLISH
== END 2019-04-14 07:16 | disposition home or self-care (01) ==
LOC: ED 04:27
DX: L03.317 Cellulitis of buttock (principal); F17.200 Nicotine dependence, unspecified, uncomplicated; Z79.899 Other long term (current) drug therapy; Z79.1 Long term (current) use of non-steroidal anti-inflammatories (NSAID); Z87.442 Personal history of urinary calculi; Z98.51 Tubal ligation status
CPT/HCPCS: 99282; Q0162

== ENCOUNTER 2020-12-31 00:14 | Emergency (ER) | payer SELFPAY ==
[2020-12-31] MEDS ORDERED: IBUPROFEN 800 MG TAB PO ONE (04:11)
--- NOTE | 2020-12-31 04:17 | Emergency Department Report ---
ED General Adult HPI - General Chief complaint: Skin/Abscess/Foreign Body Stated complaint: LUMP UNDER CHIN Time Seen by Provider: 12/31/20 04:10 Source: patient Mode of arrival: Ambulatory Limitations: No Limitations - History of Present Illness Initial comments: Patient is a 35-year-old female with history of dental caries who presents for lumps under her chin x3 days bilaterally. Patient denies fevers or chills there is no tooth ache today. Patient does have follow-up appointment with her personal dentist. Patient is tolerating p.o. intake without problems. Symptoms are exacerbated by nothing. Symptoms are relieved by nothing. There is no throat or ear pain. - Related Data Previous Rx's Medication Instructions Recorded Last Taken Type HYDROcodone/APAP 7.5-325 [[place] 1 each PO Q6HR PRN #13 tablet 05/16/17 Unknown Rx 7.5/325] HYDROcodone/APAP 7.5-325 [[place] 1 each PO Q6HR PRN #13 tablet 05/16/17 Unknown Rx 7.5/325] Naproxen 250 mg PO BID #20 tablet 05/16/17 Unknown Rx Nitrofurantoin Monohyd/M-Cryst 100 mg PO BID #14 capsule 05/16/17 Unknown Rx [Macrobid 100 mg Capsule] Ondansetron [Zofran TAB] 4 mg PO Q8HR PRN #13 tablet 05/16/17 Unknown Rx Ibuprofen [Ibuprofen 800] 800 mg PO TID #30 tablet 01/15/18 Unknown Rx Fluconazole (Nf) [Diflucan TAB] 150 mg PO ONCE #1 tablet 04/10/19 Unknown Rx Sulfamethoxazole/Trimethoprim 1 each PO BID 10 Days #20 tablet 04/10/19 Unknown Rx [Bactrim DS TAB] metroNIDAZOLE [Flagyl] 500 mg PO BID 7 Days #14 tab 04/10/19 Unknown Rx Acetaminophen/Codeine [Tylenol 1 tab PO Q6H PRN #12 tab 04/14/19 Unknown Rx /Codeine # 3 tab] Clindamycin [Clindamycin CAP] 300 mg PO Q8HR #60 capsule 04/14/19 Unknown Rx Ibuprofen [Motrin] 600 mg PO Q8H PRN #24 tablet 04/14/19 Unknown Rx Ondansetron [Zofran Odt] 4 mg PO Q6HR PRN #12 tab.rapdis 04/14/19 Unknown Rx Amoxicillin [Trimox CAP] 500 mg PO Q8H #21 capsule 12/31/20 Unknown Rx Chlorhexidine Mouthwash [Peridex] 15 ml MM BID #1 bottle 12/31/20 Unknown Rx traMADoL [Ultram] 50 mg PO Q6HR PRN #12 tablet 12/31/20 Unknown Rx Allergies Allergy/AdvReac Type Severity Reaction Status Date / Time No Known Allergies Allergy Verified 01/15/18 12:47 ED Review of Systems ROS: Stated complaint: LUMP UNDER CHIN Other details as noted in HPI Constitutional: denies: chills, fever Eyes: denies: eye pain, eye discharge, vision change ENT: denies: ear pain, throat pain Respiratory: denies: cough, shortness of breath, wheezing Cardiovascular: denies: chest pain, palpitations Endocrine: no symptoms reported Gastrointestinal: denies: abdominal pain, nausea, diarrhea Genitourinary: denies: urgency, dysuria, discharge Musculoskeletal: denies: back pain, joint swelling, arthralgia Skin: denies: rash, lesions Neurological: denies: headache, weakness, paresthesias Psychiatric: denies: anxiety, depression Hematological/Lymphatic: denies: easy bleeding, easy bruising ED Past Medical Hx - Past Medical History Previous Medical History?: Yes Hx Hypertension: No Hx Heart Attack/AMI: No Hx Congestive Heart Failure: No Hx Diabetes: No Hx Deep Vein Thrombosis: No Hx Renal Disease: Yes (kidney stones) Hx Sickle Cell Disease: No Hx Seizures: No Hx Kidney Stones: Yes Hx Asthma: No Hx COPD: No Hx HIV: No - Surgical History Past Surgical History?: Yes Additional Surgical History: TUBAL LIGATION. LEFT KIDNEY STENT - Social History Smoking Status: Current Every Day Smoker Substance Use Type: Alcohol - Medications Home Medications: Home Medications Medication Instructions Recorded Confirmed Last Taken Type HYDROcodone/APAP 7.5-325 [[place] 1 each PO Q6HR PRN #13 tablet 05/16/17 Unknown Rx 7.5/325] HYDROcodone/APAP 7.5-325 [[place] 1 each PO Q6HR PRN #13 tablet 05/16/17 Unknown Rx 7.5/325] Naproxen 250 mg PO BID #20 tablet 05/16/17 Unknown Rx Nitrofurantoin Monohyd/M-Cryst 100 mg PO BID #14 capsule 05/16/17 Unknown Rx [Macrobid 100 mg Capsule] Ondansetron [Zofran TAB] 4 mg PO Q8HR PRN #13 tablet 05/16/17 Unknown Rx Ibuprofen [Ibuprofen 800] 800 mg PO TID #30 tablet 01/15/18 Unknown Rx Fluconazole (Nf) [Diflucan TAB] 150 mg PO ONCE #1 tablet 04/10/19 Unknown Rx Sulfamethoxazole/Trimethoprim 1 each PO BID 10 Days #20 tablet 04/10/19 Unknown Rx [Bactrim DS TAB] metroNIDAZOLE [Flagyl] 500 mg PO BID 7 Days #14 tab 04/10/19 Unknown Rx Acetaminophen/Codeine [Tylenol 1 tab PO Q6H PRN #12 tab 04/14/19 Unknown Rx /Codeine # 3 tab] Clindamycin [Clindamycin CAP] 300 mg PO Q8HR #60 capsule 04/14/19 Unknown Rx Ibuprofen [Motrin] 600 mg PO Q8H PRN #24 tablet 04/14/19 Unknown Rx Ondansetron [Zofran Odt] 4 mg PO Q6HR PRN #12 tab.rapdis 04/14/19 Unknown Rx Amoxicillin [Trimox CAP] 500 mg PO Q8H #21 capsule 12/31/20 Unknown Rx Chlorhexidine Mouthwash [Peridex] 15 ml MM BID #1 bottle 12/31/20 Unknown Rx traMADoL [Ultram] 50 mg PO Q6HR PRN #12 tablet 12/31/20 Unknown Rx ED Physical Exam - General Limitations: No Limitations General appearance: alert (Congestive), in no apparent distress - Head Head exam: Present: atraumatic, normocephalic - Eye Eye exam: Present: normal appearance - ENT ENT exam: Present: mucous membranes moist, TM's normal bilaterally, normal external ear exam - Expanded ENT Exam Expanded Teeth exam: Present: dental caries (multiple ). Absent: dental tenderness # - Neck Neck exam: Present: normal inspection - Respiratory Respiratory exam: Present: normal lung sounds bilaterally. Absent: respiratory distress - Extremities Exam Extremities exam: Present: normal inspection, full ROM. Absent: tenderness - Back Exam Back exam: Present: normal inspection - Neurological Exam Neurological exam: Present: alert, oriented X3, normal gait, reflexes normal - Psychiatric Psychiatric exam: Present: normal affect, normal mood - Skin Skin exam: Present: warm, dry, intact, normal color. Absent: rash ED Course Vital Signs 12/31/20 00:33 Temperature 98.7 F Pulse Rate 111 H Respiratory 18 Rate Blood Pressure 151/107 O2 Sat by Pulse 100 Oximetry ED Medical Decision Making - EKG Data EKG shows normal: sinus rhythm Rate: normal - EKG Data When compared to previous EKG there are: no significant change - Medical Decision Making On exam masses equal in the mouth noted, there are multiple dental caries, plan treat for dental caries, follow-up with dentist as scheduled, patient verbalized agreement and understanding of discharge plan. Patient will be DC'd home in stable condition at this time. Critical care attestation.: If time is entered above; I have spent that time in minutes in the direct care of this critically ill patient, excluding procedure time. ED Disposition Clinical Impression: Dental caries Injury of right index finger Qualifiers: Encounter type: initial encounter Qualified Code(s): S69.91XA - Unspecified injury of right wrist, hand and finger(s), initial encounter Disposition: DC-01 TO HOME OR SELFCARE Is pt being admited?: No Does the pt Need Aspirin: No Condition: Stable Instructions: Preventive Dental Care, Adult Additional Instructions: follow up with your dentist in 2-3 days , take medications as scheduled. Prescriptions: Chlorhexidine Mouthwash [Peridex] 15 ml MM BID #1 bottle Amoxicillin [Trimox CAP] 500 mg PO Q8H #21 capsule traMADoL [Ultram] 50 mg PO Q6HR PRN #12 tablet PRN Reason: Pain Referrals: [facility] [Provider Group] - 3-5 Days Forms: Work/School Release Form(ED) Time of Disposition: 04:28
[2020-12-31] MEDS ORDERED: amLODIPine 5 MG TAB PO ONE (04:56)
[2020-12-31 06:03] VITALS: BP 168/108
== END 2020-12-31 04:46 | disposition home or self-care (01) ==
LOC: ED 00:14
DX: S69.91XA Unspecified injury of right wrist, hand and finger(s), initial encounter (principal); K02.9 Dental caries, unspecified; F17.200 Nicotine dependence, unspecified, uncomplicated; Z87.442 Personal history of urinary calculi; Z98.51 Tubal ligation status; Z72.89 Other problems related to lifestyle; Z98.890 Other specified postprocedural states; Z79.899 Other long term (current) drug therapy; X58.XXXA Exposure to other specified factors, initial encounter; Y93.89 Activity, other specified; Y92.89 Other specified places as the place of occurrence of the external cause; Y99.8 Other external cause status
CPT/HCPCS: 99282

== ENCOUNTER 2022-04-17 15:32 | Emergency (ER) | payer SELFPAY ==
[2022-04-17 15:47] VITALS: BP 170/90
== END 2022-04-18 13:01 | disposition left against medical advice (07) ==
LOC: ED 15:32
DX: F41.9 Anxiety disorder, unspecified (principal); Z53.21 Procedure and treatment not carried out due to patient leaving prior to being seen by health care provider